=== PATIENT | male | born 2000 | race Caucasian/White ===

== ENCOUNTER → 2018-11-12 | Outpatient (CLI) | payer OTHER ==
--- NOTE | 2018-11-12 11:46 | Diagnostic Imaging Report ---
Right hand at 927 hours. INDICATION: Injury to fifth digit. 3 views were obtained. There are no prior studies available for comparison. FINDINGS: There is no fracture, dislocation or acute bony abnormality evident. In particular, there is no sign of an injury to the fifth digit. The soft tissues are unremarkable. There is no radiopaque foreign body identified. IMPRESSION: There is no evidence for an acute bony abnormality. Dictated by: Dictated on workstation # [id number]
== END ==
LOC: RAD 08:54
PROVIDERS: ATTEND Nurse Practitioner Primary Care
DX: S69.91XA Unspecified injury of right wrist, hand and finger(s), initial encounter (principal); W19.XXXA Unspecified fall, initial encounter
CPT/HCPCS: 73130

== ENCOUNTER 2020-02-11 22:15 | Emergency (ER) | payer BC, OTHER ==
[~2020-02-11] VITALS: Ht 173 cm; Wt 56.8 kg
--- OUTSIDE RECORDS SUMMARY | 2020-02-11 22:22 | XMS REPORT | CCD ---
Author Author RICKI NUGENT Organization Unknown Address [address] [place] [id number] Care Team Providers Care Resident Assistant Name Role Phone VITOR CARLSON, TEX Adler Attphys Allergies Allergy Code Allergy Type Reaction Status No Known Drug Allergies 0 Drug allergy Active Active Medications No Active Medications Problems Unknown or Not Available. Procedures Procedure Code Procedure Type Date Arthroscopy, knee, surgical; for removal of loose body or foreign body; (- 27981 CPT 09/04/2016 Results Unknown or Not Available. Function Status Unknown or Not Available. History of Immunizations Unknown or Not Available. Plan of Treatment Unknown or Not Available. Social History Smoking Status Code Start Date End Date Never smoker [id number] Vital Signs Vital Sign Value Unit Date/Time Recent/I nitial? Weight Measured 125 [lb_av] 09/02/2016 13:15 Initial VS Height 68 [in_i] 09/02/2016 13:15 Initi al VS BMI (Body Mass Index) 19.01 kg/m2 09/02/2016 13 :15 Initial VS BSA (Body Surface Area) 1.65 m2 09/02/2016 13:15 Initial VS Respiratory Rate 21 /min 09/04/2016 15:02 Initial VS Heart Rate 115 /min 09/04/2016 15:02 I nitial VS O2 % BldC Oximetry 98 % 09/04/2016 15:02 Initial VS BP Systolic 138 mm[Hg] 09/04/2016 15:08 Initial VS BP Diastolic 85 mm[Hg] 09/04/2016 15:08 Initial VS Respiratory Rate 12 /min 09/04/2016 15:33 Most Recent VS O2 % BldC Oximetry 100 % 09/04/2016 15:33 Most Recent VS BP Systolic 146 mm[Hg] 09/04/2016 15:35 Most Recent VS BP Diastolic 88 mm[Hg] 09/04/2016 15:35 Most Recent VS Heart Rate 89 /min 09/04/2016 15:35 M ost Recent VS Function Status Unknown or Not Available. Goals Unknown or Not Available. ASSESSMENTS Unknown or Not Available. Health Concerns Section Unknown or Not Available.
--- OUTSIDE RECORDS SUMMARY | 2020-02-11 22:23 | XMS REPORT | CCD ---
Author Author RICKI SELBY Organization Unknown Address [address] [facility] [address] [place], [place] [id number] Care Team Providers Care Pressed Or Blown Glass Worker Name Role Phone VITOR CARLSON, TEX Adler Attphys F., CHINMAY NASST M., CATHIE NASST D., LIANG Jimenez NASST O., SYLVIE Hoskins NASST H., TRELL NASST G., ERICH NASST Vital Signs Vital Sign Value Unit Date/Time Recent/I nitial? Weight Measured 125 lbs 06/03/2016 10:37 Initial VS Height 68 in 06/03/2016 10:37 Initi al VS BMI (Body Mass Index) 19.01 kg/m^2 06/03/2016 10 :37 Initial VS BSA (Body Surface Area) 1.65 m^2 06/03/2016 10:37 Initial VS Respiratory Rate 13 bpm 06/05/2016 12:47 Initial VS Heart Rate 86 bpm 06/05/2016 12:47 I nitial VS O2 % BldC Oximetry 97 % 06/05/2016 12:47 Initial VS BP Systolic 122 mmHg 06/05/2016 12:55 Initial VS BP Diastolic 73 mmHg 06/05/2016 12:55 Initial VS Body Temperature 97.1 degrees 06/05/2016 13:55 Initial VS BP Systolic 136 mmHg 06/06/2016 17:26 Most Recent VS BP Diastolic 75 mmHg 06/06/2016 17:26 Most Recent VS Respiratory Rate 20 bpm 06/06/2016 17:26 Most Recent VS Heart Rate 75 bpm 06/06/2016 17:26 M ost Recent VS O2 % BldC Oximetry 100 % 06/06/2016 17:26 Most Recent VS Body Temperature 97 degrees 06/06/2016 17:26 Most Recent VS Allergies Allergy Code Allergy Type Reaction Status No Known Drug Allergies 0 No known drug allergies Active Procedures Procedure Code Procedure Type Date Arthroscopy, knee, surgical; osteochondral autograft(s) 84225 CPT 06/05/2016 PT GAIT TRAINING/STAIRS EA 15 MIN [id number] SNOMED C T 06/06/2016 KNEE 1V OR 2V 58209082 SNOMED CT 06/05/2016 PT THERAPEUTIC ACT. ONE ON ONE EA 15 [address] 508888942 S NOM[address] 06/05/2016 PT THERAPEUTIC EXERCISES [address] 06/05/2016 PT GAIT TRAINING/STAIRS EA 15 MIN 69820131 SNOMED C T 06/05/[address]75 SN[address] 06/05/2016 INCENTIVE SPIROMETRY EA [address] 06/05/2016 BAN AERO ECLIPSE TREATMENT 01465114 SNOMED CT 06/06/2016 BAN AERO ECLIPSE TREATMENT 98985245 SNOMED CT 06/05/2016 BAN AERO ECLIPSE TREATMENT 76331223 SNOMED CT 06/05/2016 History of Immunizations Unknown or Not Available. Problems Unknown or Not Available. Results Unknown or Not Available. Active Medications Medications Administered During Visit Medication Dose Units Frequency Route D ate/Time of Last Dose DUONEB [IPRATROPIUM/ALBUTEROL] 0.5/3 MG 1 UD TID INHALE 06/06/2016 07:15 D5NS 1000ML IV [PREDEFINED] CON T IV 06/05/2016 20:17 CEFAZOLIN [ANCEF] 2 GM IV PREMIX BAG Q6H 06/06/2016 07:50 ASPIRIN ENTERIC COATED TAB : 325MG 325 MG BID PO 06/06/2016 07:50 VITAMIN (LH SUB FOR ALL MULTIVITAMINS) 1 TAB DAILY PO 06/06/2016 07:50 OFIRMEV [ACETAMINOPHEN] 10MG/ML 100ML VL Q6H 06/06/2016 09:12 OXYCODONE 5 MG IMMEDIATE RELEASE TAB 1 TAB PRN PO 06/05/2016 20:24 Encounters Encounter Diagnosis Diagnosis Code Start Date Loose body in knee, left knee M2342 05/26 Social History Smoking Status Code Start Date End Date Never smoker [id number] Patient Decision Aids Patient Decision Aid KNEE ARTHROSCOPY; AFTER THE PROCEDURE Discharge Instructions You were admitted to [facility] on 06/05/2016 06:46 with a principal diagnosis of Loose body in knee, left knee You had the following procedures done: Arthroscopy, knee, surgical; osteochondral autograft(s) You were discharged from [facility] on 06/06/2016 16:45 Should you have any questions prior to discharge, please contact a member of your healthcare team. If you have left the hospital and have any questions, please contact your primary care physician. HOME DIET: Regular. CONDITION AT DISMISSAL Stable. ACTIVITY INSTRUCTIONS(list limitations): NON-WEIGHT BEARING TO LEFT LOWER EXTREMITY, ICE AND ELEVATE AFFECTED EXTREMITY,MAY RINSE INCISION OFF IN SHOWER BUT DO NOT SOAK SPECIAL INSTRUCTIONS: HOME CPM UNIT TO WORK ON FULL EXTENSION AND FLEXION, ICE AND ELEVATE AFFECTED EXTREMITY, CELAN INCISION WITH ALCOHOL TWICE A DAY, RECOMMEND MIRALAX OR STOOL SOFTENER WHILE ON PAIN MEDS, REMOVE DRESSING IN TOMORROW MORNING 06/07. SCRIPTS WRITTEN BY DOCTOR GIVEN TO PATIENT? ASPIRIN OXYCODONE HOME CPM SCRIPT FOLLOW UP CARE - SEE YOUR PHYSICIAN: FOLLOW UP WITH DR. NAJERA 06/09 AT 2:50 PRIMARY CARE PHYSICIAN OR PRACTITIONER: Tex Najera MD, . PERSONAL ITEMS RETURNED: Yes. INSTRUCTIONS GIVEN AND DISCHARGE TO: Patient, Parent. VOICES UNDERSTANDING OF INSTRUCTIONS: Yes. INSTRUCTIONS GIVEN BY (TYPE IN NAME AND DATE) LIANG JARRELL CHIEF COMPLAINT: LEFT KNEE PAIN Chief Complaint and Reason For Visit Chief Complaint Date of Onset KNEE SCOPE LEFT Function Status Unknown or Not Available. Plan of Care Unknown or Not Available. Referral/Transition of Care Unknown or Not Available.
--- OUTSIDE RECORDS SUMMARY | 2020-02-11 22:23 | XMS REPORT ---
Author Author Caden NOGUERA Organization [employer] Address Unknown Phone Unavailable Care Team Providers Care Registered Nurse Hh Case Manager Name Role Phone DAVIDSON NOGUERA CP Unavailable Allergies, Adverse Reactions, Alerts Substance Reaction Event Type N.K.D.A. Info Not Available Non Drug Allergy Problems Problem Type Condition Code Onset Dates Condition Statu s Assessment Annual physical exam Z00.00 Active Medications No Known Medications Procedures Procedure Coding System Code Date VISUAL ACUITY SCREEN CPT-4 76906 Sep 24 5 Preventive Care Est Pt. Age 12-17 CPT-4 11541 Sep 24, 2015 Vital Signs Date/Time: Sep 24, 2015 Temperature 98.5 F BMIPercentile 26.28 % Weight 127.6 lbs Height 67 in BMI 19.98 Index Blood Pressure Diastolic 80 mmHg Blood Pressure Systolic 138 mmHg Cardiac Monitoring Heart Rate 90 bpm Wt Percentile 18.83 % Ht Percentile 21.65 % Results No Known Results Summary Purpose [employer] Submission
--- OUTSIDE RECORDS SUMMARY | 2020-02-11 22:23 | XMS REPORT ---
Author Author Caden Calixto Organization [facility] Address [address] [place], [place] [phone] Care Team Providers Care Deputy Clerk Of Superior Court Name Role Phone Danny Calixto PCP Allergies and Adverse Reactions Name Reaction Notes NO KNOWN DRUG ALLERGIES Plan of Treatment Not available. Medications Active Name Start Date Estimated Completion Date SIG Co mments Mobic 15 mg oral tablet 04/14/2016 04/29/2016 take 1 t ablet (15 mg) by oral route once daily for 15 days Name Start Date Expiration Date SIG Comments amoxicillin 500 mg oral tablet 12/20/2010 12/30/2010 t patrica 1 tablet (500 mg) by oral route every 12 hours for 10 days Zithromax Z-Luis E 250 mg oral tablet 11/02/2014 11/07/2014 take 2 tablets (500 mg) by oral route once daily for 1 day then 1 tablet (250 mg) by oral route once daily for 4 days Discontinued Name Start Date Discontinued Date SIG Comments Medrol (Luis E) 4 mg oral tablets,dose pack 11/02/2014 10/09/2015 take as directed Problem List Not available. Vital Signs Date Time BP-Sys(mm[Hg] BP-Nelly(mm[Hg]) HR(bpm) RR(rpm) Temp WT HT HC BMI BSA BMI Percentile O2 Sat(%) 04/14/2016 2:08:00 PM 130 mmHg 70 mmHg 83 bpm 16 rpm 96.9 F 126.125 lbs 66 in 20.36 kg/m2 1.63 m2 26 % 99 % 10/09/2015 3:30:00 PM 132 mmHg 65 mmHg 72 bpm 18 rpm 97.1 F 129.2 lbs 100 % 11/02/2014 10:57:00 AM 79 bpm 16 rpm 97.8 F 125.8 lbs 99 % 12/20/2010 2:26:00 PM 104 mmHg 68 mmHg 88 bpm 20 rpm 102.1 F 94.25 lbs 62 i n 17.2384 kg/m 1.3675 m 30 % Social History Name Description Comments Tobacco Never smoker Student (High school ) Lives with both parents History of Procedures Date Ordered Description Order Status 04/14/2016 12:00 AM RADIOLOGIC EXAMINATION KNEE 1/2 VIEWS Re turned Results Summary Not available. History Of Immunizations Not available. History of Past Illness Name Date of Onset Comments *No known medical problems Upper Respiratory Infection Dec 20 2010 2:26PM Rhinitis, Allergic Nov 02 2014 10:58AM Sinusitis, Acute Nov 02 2014 10:58AM Elevated blood pressure (not hypertension) Oct 09 2015 3:32 PM Acute pain of left knee Apr 14 2016 2:10PM Osteochondral defect Apr 14 2016 2:10PM Payers Insurance Name Company Name Plan Name Plan Number Policy Number Kenny cy Group Number Start Date [employer] [id number] N /A FRA Insurance Plans FRA Insurance Plans [id number] N/A [employer] [id number] N /A FRA Insurance Plans FRA Insurance Plans [id number] N/A History of Encounters Visit Date Visit Type Provider 04/14/2016 Office visit Danny Calixto APR N 10/09/2015 Office visit Sandee HYLTON RN 11/02/2014 Office visit Sandee HYLTON RN 12/20/2010 Office visit Aurora CARTAGENA
--- OUTSIDE RECORDS SUMMARY | 2020-02-11 22:23 | XMS REPORT ---
Author Author Caden Hammer Organization [facility] Address [address] [place], [place] [phone] Care Team Providers Care Drying Rack Changer Name Role Phone Sandee Hammer PCP Unavailable Allergies and Adverse Reactions Name Reaction Notes NO KNOWN DRUG ALLERGIES Plan of Treatment Not available. Medications Name Start Date Expiration Date SIG Comments [...] HC BMI BSA BMI Percentile O2 Sat(%) 10/09/2015 3:30:00 PM 132 mmHg 65 mmHg 72 bpm 18 rpm 97.1 F 129.2 lbs 100 % 11/02/2014 10:57:00 AM 79 bpm 16 rpm 97.8 F 125.8 lbs 99 % 12/20/2010 2:26:00 PM 104 mmHg 68 mmHg 88 bpm 20 rpm 102.1 F 94.25 lbs 62 i n 17.2384 kg/m 1.3675 m 30 % Social History Name Description Comments Student (High school ) No Tobacco Use Lives with both parents History of Procedures Not available. Results Summary Not available. History Of Immunizations Not available. History of Past Illness Name Date of Onset Comments *No known medical problems Upper Respiratory Infection Dec 20 2010 2:26PM Rhinitis, Allergic Nov 02 2014 10:58AM Sinusitis, Acute Nov 02 2014 10:58AM Elevated blood pressure (not hypertension) Oct 09 2015 3:32 PM Payers Insurance Name Company Name Plan Name Plan Number Policy Number Kenny cy Group Number Start Date [employer] [id number] N /A FRA Insurance Plans FRA Insurance Plans [id number] N/A [employer] [id number] N /A FRA Insurance Plans FRA Insurance Plans [id number] N/A History of Encounters Visit Date Visit Type Provider 10/09/2015 Office visit Sandee HYLTON RN 11/02/2014 Office visit Sandee HYLTON RN 12/20/2010 Office visit Aurora CARTAGENA
--- OUTSIDE RECORDS SUMMARY | 2020-02-11 22:23 | XMS REPORT ---
Author Author Caden Calixto [facility] Address [address] [place] [id number] Care Team Providers Care Strategic Partnership Specialist Name Role Phone Danny Calixto PCP Allergies and Adverse Reactions Name Reaction Notes NO KNOWN DRUG ALLERGIES Plan of Treatment Planned Activity Comments Planned Date Planned Time Plan/Goal knee pain 05/07/2016 8:30 AM knee pain 05/07/2016 8:30 AM Medications Name Start Date Expiration Date SIG [...] oral route once daily for 4 days Mobic 15 mg oral tablet 04/14/2016 04/29/2016 take 1 t ablet (15 mg) by oral route once daily for 15 days Discontinued Name Start Date Discontinued Date [...] Group Number Start Date [employer] [id number] N /A FRA Insurance Plans FRA Insurance Plans [id number] N/A [employer] [id number] N /A FRA Insurance Plans FRA Insurance Plans [id number] N/A History of Encounters Visit Date Visit Type Provider 04/14/2016 Office visit Danny Calixto APR N 10/09/2015 Office visit Sandee HYLTON RN 11/02/2014 Office visit Sandee HYLTON RN 12/20/2010 Office visit Aurora CARTAGENA
[2020-02-11 22:45] VITALS: BP 133/85
--- NOTE | 2020-02-11 23:00 | ED EENT ---
History of Present Illness General Stated Complaint: FEVER,CHILLS,HEAD INJURY Source: patient History of Present Illness Date Seen by Provider: Feb 11, 2020 Time Seen by Provider: 22:47 Initial Comments PT ARRIVES VIA POV FROM HOME C/O FEVER OF 101.7 AT 2100 TONIGHT, HAS HAD CHILLS SINCE LAST NIGHT. HAS NOT TAKEN ANYTHING FOR FEVER AT ANY TIME C/O VERY SORE THROAT AND STATES HIS TONSILS ARE ENLARGED AND REALLY RED NO PROBLEMS SWALLOWING AND ABLE TO HANDLE SECRETIONS NO COUGH OR NASAL CONGESTION NO GI SYMPTOMS NO KNOWN SICK CONTACTS OR EXPOSURE TO COVID-19, BUT PT WORKS AT [email or web address] PT LIVES ALONE. DID NOT GO TO WORK TODAY, BECAUSE OF FEVER PCP: [facility]--HAS ONLY BEEN THERE ONE TIME Allergies and Home Medications Allergies Coded Allergies: No Known Drug Allergies (Unverified , 02/11/20) Home Medications Amoxicillin/Potassium Clav 1 Each Tablet, 1 EACH PO BID Prescribed by: NICKO HENDERSON on 02/11/20 3159 Patient Home Medication List Home Medication List Reviewed: Yes Review of Systems Review of Systems Constitutional: no symptoms reported Eyes: No Symptoms Reported Ears: No Symptoms Reported Nose: no symptoms reported Mouth: no symptoms reported Throat: see HPI, pain, swelling; denies neck stiffness, denies hoarse, denies aphonia, denies muffled; painful swallowing; denies difficulty with fluids Respiratory: no symptoms reported Cardiovascular: no symptoms reported Gastrointestinal: No abdominal pain, No diarrhea; nausea (SLIGHT); No vomiting Musculoskeletal: no symptoms reported Skin: no symptoms reported; No rash Neurological: No Symptoms Reported, Other (STATES HE BUMPED HIS HEAD AT WORK YESTERDAY--DID NOT REPORT IT TO EMPLOYER UNTIL TODAY, STATES "HE IS GOING TO FILL OUT THE PAPERWORK FOR WORKMAN'S COMP TOMORROW" STATES HE DID NOT HAVE LOSS OF CONSCIOUSNESS. NO VISION CHANGES. NO HEADACHE. ) Past Raxjyvt-Ydeqth-Xmsfsv Hx Past Med/Social Hx: Reviewed and Corrections made Patient Social History Alcohol Use: Occasionally Uses Recreational Drug Use: Yes (THC) Drug of Choice: THC Smoking Status: Never a Smoker Recent Foreign Travel: No Past Medical History Surgeries: Yes (WISDOM TEETH; LEG SURGERY) Orthopedic Respiratory: No Cardiac: No Neurological: No Reproductive Disorders: No Genitourinary: No Gastrointestinal: No Musculoskeletal: Yes (LEG SURGERY) Endocrine: No HEENT: No Cancer: No Psychosocial: No Integumentary: No Blood Disorders: No Physical Exam Vital Signs Vital Signs - First Documented 02/11/20 22:45 Temp 37.4 Pulse 95 Resp 16 B/P (MAP) 133/85 (101) Pulse Ox 100 O2 Delivery Room Air Height, Weight, BMI Height: '" Weight: lbs. oz. kg; BMI Method: General Appearance: WD/WN, no apparent distress, other (DOES NOT APPEAR ILL OR TO BE IN ANY DISCOMFORT OR DISTRESS) Eyes: bilateral eye normal inspection, bilateral eye PERRL, bilateral eye EOMI Ears: bilateral ear auricle normal, bilateral ear canal normal, bilateral ear TM normal Nose: normal inspection Mouth/Throat: No excessive drooling; tonsillar exudate, tonsillar swelling (+2/4 IN SIZE. 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, no motor/sensory deficits, alert, normal mood/affect, oriented x 3 Skin: normal color, warm/dry; No rash Progress/Results/Core Measures Results/Orders Lab Results Laboratory Tests Test 02/11/20 22:55 Range/Units White Blood Count 17.0 H 4.3-11.0 10^3/uL Red Blood Count 4.56 4.35-5.85 10^6/uL Hemoglobin 14.9 13.3-17.7 G/DL Hematocrit 42 40-54 % Mean Corpuscular Volume 91 80-99 FL Mean Corpuscular Hemoglobin 33 25-34 PG Mean Corpuscular Hemoglobin Concent 36 32-36 G/DL Red Cell Distribution Width 12.3 10.0-14.5 % Platelet Count 199 130-400 10^3/uL Mean Platelet Volume 9.4 7.4-10.4 FL Neutrophils (%) (Auto) 81 H 42-75 % Lymphocytes (%) (Auto) 7 L 12-44 % Monocytes (%) (Auto) 12 0-12 % Eosinophils (%) (Auto) 0 0-10 % Basophils (%) (Auto) 0 0-10 % Neutrophils # (Auto) 13.7 H 1.8-7.8 X 10^3 Lymphocytes # (Auto) 1.3 1.0-4.0 X 10^3 Monocytes # (Auto) 2.0 H 0.0-1.0 X 10^3 Eosinophils # (Auto) 0.0 0.0-0.3 10^3/uL Basophils # (Auto) 0.0 0.0-0.1 10^3/uL Neutrophils % (Manual) 83 % Lymphocytes % (Manual) 7 % Monocytes % (Manual) 9 % Band Neutrophils 1 % Blood Morphology Comment NORMAL Sodium Level 135 135-145 MMOL/L Potassium Level 3.5 L 3.6-5.0 MMOL/L Chloride Level 100 98-107 MMOL/L Carbon Dioxide Level 22 21-32 MMOL/L Anion Gap 13 5-14 MMOL/L Blood Urea Nitrogen 12 7-18 MG/DL Creatinine 0.86 0.60-1.30 MG/DL Estimat Glomerular Filtration Rate > 60 BUN/Creatinine Ratio 14 Glucose Level 81 70-105 MG/DL Calcium Level 8.8 8.5-10.1 MG/DL Corrected Calcium 8.6 8.5-10.1 MG/DL Total Bilirubin 0.9 0.1-1.0 MG/DL Aspartate Amino Transf (AST/SGOT) 24 5-34 U/L Alanine Aminotransferase (ALT/SGPT) 14 0-55 U/L Alkaline Phosphatase 90 40-136 U/L Total Protein 7.1 6.4-8.2 GM/DL Albumin 4.2 3.2-4.5 GM/DL Monoscreen NEGATIVE NEGATIVE Group A Streptococcus Screen POSITIVE H NEGATIVE My Orders Orders - NICKO HENDERSON DO Ed Iv/Invasive Line Start (02/11/20 22:47) Monitor-Rhythm Ecg Trace Only (02/11/20 22:47) Cbc With Automated Diff (02/11/20 22:47) Monotest (02/11/20 22:47) Rapid Strep A Screen (02/11/20 22:47) Ed Iv/Invasive Line Start (02/11/20 22:47) Ed Iv/Invasive Line Start (02/11/20 22:47) O2 (02/11/20 22:47) Comprehensive Metabolic Panel (02/11/20 23:09) Manual Differential (02/11/20 22:55) Amoxicillin/Clavulanate Tablet (Augmenti (02/11/20 23:45) Vital Signs/I&O 02/11/20 22:45 Temp 37.4 Pulse 95 Resp 16 B/P (MAP) 133/85 (101) Pulse Ox 100 O2 Delivery Room Air Progress Progress Note : Progress Note PT INITIALLY SEEN IN COVID UNIT, DUE TO COMPLAINT OF FEVER. HOWEVER AFTER PERFORMING THOROUGH HISTORY AND EXAM AND OBTAINING LAB, PT WAS MOVED TO FAST TRACK ER ROOM, HIS SYMPTOMS APPEAR TO BE RELATED TO STREP THROAT. Departure Impression Primary Impression: Streptococcal pharyngitis Additional Impression: Exudative pharyngitis Disposition: HOME, SELF-CARE Condition: Stable Departure-Patient Inst. Referrals: NO,LOCAL PHYSICIAN (PCP) Primary Care Physician [facility] [place] Instructions: Strep Throat (DC) Add. Discharge Instructions: LOTS OF CLEAR LIQUIDS FREQUENT SALT WATER GARGLES TYLENOL 1 GRAM / MOTRIN 800 MG 4 TIMES A DAY FOR PAIN OR FEVER FOLLOW UP WITH YOUR DR IN 4-5 DAYS IF NO BETTER Scripts Amoxicillin/Potassium Clav (Augmentin 875-125 Tablet) 1 Each Tablet 1 EACH PO BID for 10 Days, #20 TAB Prov: NICKO HENDERSON DO 02/11/20 NICKO HENDERSON DO Feb 11, 2020 23:00
[2020-02-11 23:11] LABS: BASOPHILS % (AUTO) 0 % (0-10); EOSINOPHILS % (AUTO) 0 % (0-10); HEMATOCRIT 42 % (40-54); HEMOGLOBIN 14.9 G/DL (13.3-17.7); LYMPHOCYTES # (AUTO) 1.3 X 10^3 (1.0-4.0); LYMPHOCYTES % (AUTO) 7 % (12-44); MEAN CORPUSCULAR HEMOGLOBIN 33 PG (25-34); MEAN CORPUSCULAR HGB CONC 36 G/DL (32-36); MEAN CORPUSCULAR VOLUME 91 FL (80-99); MEAN PLATELET VOLUME 9.4 FL (7.4-10.4); MONOCYTES % (AUTO) 12 % (0-12); NEUTROPHILS # (AUTO) 13.7 X 10^3 (1.8-7.8); NEUTROPHILS % (AUTO) 81 % (42-75); PLATELET COUNT 199 10^3/uL (130-400); RED CELL DISTRIBUTION WIDTH 12.3 % (10.0-14.5)
[2020-02-11 23:23] LABS: ALBUMIN 4.2 GM/DL (3.2-4.5); CHLORIDE 100 MMOL/L (98-107); POTASSIUM 3.5 MMOL/L (3.6-5.0); SODIUM 135 MMOL/L (135-145)
[2020-02-11 23:24] LABS: CALCIUM 8.8 MG/DL (8.5-10.1)
[2020-02-11 23:25] LABS: GLUCOSE 81 MG/DL (70-105); TOTAL PROTEIN 7.1 GM/DL (6.4-8.2)
[2020-02-11 23:26] LABS: CARBON DIOXIDE 22 MMOL/L (21-32)
[2020-02-11 23:27] LABS: BILIRUBIN,TOTAL 0.9 MG/DL (0.1-1.0)
[2020-02-11 23:29] LABS: ALKALINE PHOSPHATASE 90 U/L (40-136); CREATININE SERUM 0.86 MG/DL (0.60-1.30); GFR ESTIMATED > 60
[2020-02-11 23:30] LABS: BUN/CREATININE RATIO 14
[2020-02-11] MEDS ORDERED: AMOX-358 PO (23:31)
[2020-02-11 23:32] LABS: ALANINE AMINOTRANSFERASE 14 U/L (0-55)
[2020-02-11 23:40] LABS: BAND NEUTROPHILS 1 %; LYMPHOCYTES % (MANUAL) 7 %; MONOCYTES % (MANUAL) 9 %; NEUTROPHILS % (MANUAL) 83 %; RBC MORPH NORMAL
[2020-02-11] MEDS ORDERED: AUGMENTIN 875 MG TAB (AMOXICILLIN/CLAVULANATE) PO SCH (23:45)
== END 2020-02-11 23:36 | disposition home or self-care (01) ==
LOC: EDUNIT# 22:15 → ER 22:19
DX: J02.0 Streptococcal pharyngitis (principal)
CPT/HCPCS: 36415; 80053; 85007; 85027; 86308; 87430